=== PATIENT | female | born 1950 | race Caucasian/White ===

== ENCOUNTER → 2016-12-10 | Outpatient (CLI) | payer BC, OTHER ==
[~2016-12-10] MED LIST: ASCA500 PO; CHOL100027 PO; DHEA PO; LANS30CA12 PO; MEDR5TAB PO; MOME50SP5; MULT-506 PO; OXYC-57 PO; OXYSR10 PO; PROGESTRONE PO; PXL20 PO; XRL10 PO; [UNRECOGNIZED DRUG - OTHER] OPB; [UNRECOGNIZED DRUG - OTHER] PO; [UNRECOGNIZED DRUG - REMARK] PO; rescue inhaler INH
== END | disposition home or self-care (01) ==
LOC: C.RDSM 12:05
PROVIDERS: ATTEND Orthopaedic Surgery
DX: S63.501D Unspecified sprain of right wrist, subsequent encounter (principal); X58.XXXD Exposure to other specified factors, subsequent encounter

== ENCOUNTER → 2017-01-04 | Outpatient (CLI) | payer BC ==
[2017-01-04 13:26] LABS: ESTIMATED AVERAGE GLUCOSE 163 mg/dl; HA1C FLAG Normal (Normal)
== END | disposition home or self-care (01) ==
LOC: C.LABMFLN 09:12
PROVIDERS: ATTEND Family Medicine
DX: E11.9 Type 2 diabetes mellitus without complications (principal)

== ENCOUNTER → 2017-07-05 | Outpatient (CLI) | payer BC ==
[2017-07-05 12:48] LABS: BASO % 1.7 %; BASO ABS # 0.09 K/uL (0-0.2); COMPLETE YES; EOS % 5.2 %; HEMATOCRIT 40.2 % (37-47); IG% 0.4 %; LYMPH % 31.3 %; LYMPH ABS # 1.61 K/uL (1.2-3.4); MEAN CELL VOLUME 92.4 fL (80-100); MEAN CORPUSCULAR HEMOGLOBIN 31.3 pg (25-34); MEAN CORPUSCULAR HGB CONC 33.8 g/dl (32-36); MEAN PLATELET VOLUME 9.3 fL (7.4-10.4); MONO % 11.1 %; NEUT % 50.3 %; PLATELET COUNT 288 K/uL (130-400); RED BLOOD COUNT 4.35 M/uL (4.2-5.4); WHITE BLOOD COUNT 5.15 K/uL (4.8-10.8)
[2017-07-05 13:11] LABS: ESTIMATED AVERAGE GLUCOSE 154 mg/dl; HA1C FLAG Normal (Normal)
[2017-07-05 13:15] LABS: ALT/SGPT 24 U/L (12-78); AST/SGOT 16 U/L (15-37); BLOOD UREA NITROGEN 20 mg/dl (7-18); BUN/CREATININE RATIO 26.1 (10-20); CARBON DIOXIDE 26 mmol/L (21-32); CHLORIDE 105 mmol/L (98-107); CHOLESTEROL 244 mg/dl (0-200); CREATININE 0.75 mg/dl (0.60-1.20); GLUCOSE 151 mg/dl (70-99); POTASSIUM 4.2 mmol/L (3.5-5.1); SODIUM 138 mmol/L (136-145); TRIGLYCERIDES 254 mg/dl (0-150); VERY LOW DENSITY LIPOPROT CALC 51 mg/dl
[2017-07-05 13:19] LABS: ALB/GLOB RATIO 1.1 (0.9-2); ALKALINE PHOSPHATASE 86 U/L (45-117); CHOLESTEROL/HDL RATIO 4.7; HDL CHOLESTEROL 52 mg/dl; LDL CHOLESTEROL CALCULATED 141 mg/dl
[2017-07-05 14:53] LABS: RATIO 9.6 mcg/mg (0-30.0)
== END | disposition home or self-care (01) ==
LOC: C.LABMFLN 09:55
PROVIDERS: ATTEND Family Medicine
DX: E11.9 Type 2 diabetes mellitus without complications (principal); I10 Essential (primary) hypertension; E78.5 Hyperlipidemia, unspecified